=== PATIENT | male | born 1960 | race Caucasian/White ===

== ENCOUNTER 2023-08-25 08:34 | Day surgery (SDC) | payer MEDICARE, OTHER ==
[~2023-08-25] VITALS: Ht 180.3 cm; Wt 87.3 kg
[~2023-08-25 08:34] MED LIST: Lactated Ringer's 1,000 ML IV ONE; TAMS.4ER PO; propofoL 50 ML IV ONE
[2023-08-25] MEDS ORDERED: CENTRUM SILVER1 EAC2 (09:22)
[2023-08-25] MEDS ORDERED: Lactated Ringer's 1,000 ML IV ONE (09:41)
[2023-08-25 10:58] VITALS: BP 105/69
== END 2023-08-25 10:59 | disposition home or self-care (01) ==
LOC: ORSCSDS 08:34
PROVIDERS: Surgery
PROC: 0DBH8ZX Excision of Cecum, Via Natural or Artificial Opening Endoscopic, Diagnostic (ICD-10-PCS; principal; 2023-08-25 09:45)
DX: Z12.11 Encounter for screening for malignant neoplasm of colon (principal); D12.0 Benign neoplasm of cecum; E78.5 Hyperlipidemia, unspecified; I10 Essential (primary) hypertension; G47.33 Obstructive sleep apnea (adult) (pediatric); Z79.899 Other long term (current) drug therapy
CPT/HCPCS: 88305; J2704; J7120